=== PATIENT | male | born 2000 | race Caucasian/White ===

== ENCOUNTER 2023-10-08 19:49 | Emergency (ER) | payer MEDICAID ==
[~2023-10-08] VITALS: Ht 180.3 cm; Wt 117.9 kg
[2023-10-08] MEDS ORDERED: IBUP-1971 PO (20:06)
[2023-10-08 20:10] VITALS: BP_SYST 167; PULSE 102; RESP 18; TEMP 98.3; O2SAT 97
== END 2023-10-08 20:21 | disposition home or self-care (01) ==
LOC: SED 19:49
DX: R51.9 Headache, unspecified (principal); Z98.890 Other specified postprocedural states
CPT/HCPCS: 99282